=== PATIENT | female | born 1995 | race Caucasian/White ===

== ENCOUNTER 2018-05-12 19:05 | Emergency (ER) | payer OTHER ==
[~2018-05-12] VITALS: Ht 167.6 cm; Wt 54.4 kg
[~2018-05-12 19:05] MED LIST: BACL10 PO; DIPH50 PO; IBUP400 PO; PREG25 PO
[2018-05-12] MEDS ORDERED: Hair, Skin & N1 EACH PO (20:03)
[2018-05-12] MEDS ORDERED: FOLGARD TABLET1 EACH PO (20:04)
== END 2018-05-12 20:19 | disposition home or self-care (01) ==
LOC: ER 19:05
DX: J02.9 Acute pharyngitis, unspecified (principal); Z88.5 Allergy status to narcotic agent; Z79.899 Other long term (current) drug therapy
CPT/HCPCS: 87081; 87430; 99282